=== PATIENT | female | born 1935 | race Caucasian/White ===

== ENCOUNTER 2018-09-03 10:37 | Inpatient (IN) | payer OTHER ==
[~2018-09-03] VITALS: Ht 157.5 cm; Wt 68.0 kg
[2018-09-03 10:39] VITALS: BP 133/81
[2018-09-03] MEDS ORDERED: ASPIR 8181 MG PO (11:23)
[2018-09-03] MEDS ORDERED: ADVAIR HFA 230M12 GM INH (11:23)
[2018-09-03] MEDS ORDERED: PREDNISONE 1 MG1 M1 PO (11:23)
[2018-09-03] MEDS ORDERED: METOPROLOL TART25 MG PO (11:24)
[2018-09-03] MEDS ORDERED: LISINOPRIL2.5 MG PO (11:24)
[2018-09-03] MEDS ORDERED: CRESTOR10 MG PO (11:24)
[2018-09-03] MEDS ORDERED: FISH OIL 1,001000 M2 PO (11:25)
[2018-09-03] MEDS ORDERED: AMARYL2 MG PO (11:25)
[2018-09-03 11:28] LABS: ABSOLUTE BASOPHILS 0.1 thou/uL (0.0-0.2); ABSOLUTE EOSINOPHILS 0.1 thou/uL (0.0-0.7); ABSOLUTE LYMPHOCYTES 2.5 thou/uL (0.8-5.3); ABSOLUTE MONOCYTES 0.7 thou/uL (0.0-1.2); ABSOLUTE NEUTROPHILS 5.3 thou/uL (1.6-8.1); BASOPHILS 1.1 %; EOSINOPHILS 0.7 %; HEMATOCRIT 44.5 % (37.0-47.0); LYMPHOCYTES 29.1 %; MCH 32.4 pg (26.0-34.0); MCHC 33.8 g/dL (28.0-37.0); MONOCYTES 8.2 %; MPV 10.4 fl. (7.2-11.1); NUCLEATED RBCS 0 /100WBC; PLATELET COUNT* 127 thou/uL (150-400); POLYS 60.9 %; RBC 4.64 mil/uL (4.20-5.00); RDW-CV 13.3 % (10.5-14.5); WBC 8.6 thou/uL (4.0-11.0)
[2018-09-03 11:36] LABS: ANION GAP 8 mmol/L (7-16); BUN 19 mg/dL (7-18); CALCIUM 9.4 mg/dL (8.5-10.1); CHLORIDE 101 mmol/L (98-107); CO2 28 mmol/L (21-32); GLUCOSE 174 mg/dL (70-99); POTASSIUM 3.5 mmol/L (3.5-5.1); SODIUM 137 mmol/L (136-145)
[2018-09-03 11:42] LABS: ALBUMIN 3.2 g/dL (3.4-5.0); ALKALINE PHOSPHATASE 72 U/L (46-116); SGOT 23 U/L (15-37); SGPT 19 U/L (30-65); TOTAL BILIRUBIN 1.1 mg/dL (<0.1-1.0); TOTAL PROTEIN 6.9 g/dL (6.4-8.2); TROPONIN-I LEVEL <0.06 ng/mL (<0.06)
[2018-09-03 13:36] LABS: URINE BLOOD 1+ (Negative); URINE CLARITY CLEAR; URINE COLOR YELLOW; URINE GLUCOSE-RANDOM NEGATIVE (Negative); URINE KETONES 2+ (Negative); URINE LEUKOCYTES 2+ (Negative); URINE NITRITE NEGATIVE (Negative); URINE PROTEIN 1+ (Negative); URINE SPECIFIC GRAVITY 1.025 (1.005-1.030)
[2018-09-03 13:40] LABS: URINE BILIRUBIN 1+ (Negative)
[2018-09-03 13:42] LABS: ICTOTEST (BILI CONFIRMATORY) Negative (Negative)
[2018-09-03 13:45] LABS: CASTS None Seen /LPF (None Seen); CRYSTALS None Seen /LPF (None Seen); SQUAMOUS 4-10 Moderate /LPF (0-3); URINE RBC 3-10 Few /HPF (0-2); URINE WBC >25 Many /HPF (0-5)
[2018-09-03 15:32] VITALS: BP 101/49
--- NOTE | 2018-09-03 15:32 | EKG ---
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 : 1935 Requested By: Teagan Blas Order Number: [id number] MD: Jose Antonio Shaikh Measurements Intervals [place] Rate: 98 P: 58 MI: 189 QRS: 1 QRSD: 100 T: 112 QT: 359 QTc: 459 Interpretive Statements Sinus rhythm Borderline low voltage, extremity leads Abnormal R-wave progression, late transition Abnormal inferior Q waves Abnormal T, consider ischemia, lateral leads No previous ECG available for comparison Electronically Signed On 09-03-2018 15:32:16 CDT by Jose Antonio Shaikh [email or web address] <ELECTRONICALLY SIGNED> By: Jose Antonio Shaikh MD, FACC 09/03/18 1532 1133 1133 Jose Antonio Shaikh MD, [facility] /EPI
[2018-09-03 16:14] VITALS: BP 101/49
[2018-09-03 21:00] VITALS: BP 150/65
[2018-09-04 08:00] VITALS: BP 115/56
[2018-09-04] MEDS ORDERED: CIPRO500 MG PO (12:09)
[2018-09-04] MEDS ORDERED: ULTRAM 50MG TAB50 MG PO (12:10)
[2018-09-04 12:11] VITALS: BP 115/56
[2018-09-04] MEDS ORDERED: TYLENOL EXTRA500 MG PO (12:16)
[2018-09-04 13:28] VITALS: BP 115/56
== END 2018-09-04 13:31 | disposition home or self-care (01) | DRG 543 ==
LOC: M.ERS 10:37 → M.ORTHSURG 13:48 → M.TBA-ER 13:48 → M.ORTHSURG 15:06
PROVIDERS: Nurse Practitioner Family; ADMIT Internal Medicine
DX: M80.08XA Age-related osteoporosis with current pathological fracture, vertebra(e), initial encounter for fracture (principal); N39.0 Urinary tract infection, site not specified; I10 Essential (primary) hypertension; I25.10 Atherosclerotic heart disease of native coronary artery without angina pectoris; J45.909 Unspecified asthma, uncomplicated; J44.9 Chronic obstructive pulmonary disease, unspecified; S09.90XA Unspecified injury of head, initial encounter; S39.012A Strain of muscle, fascia and tendon of lower back, initial encounter; M32.9 Systemic lupus erythematosus, unspecified; E11.40 Type 2 diabetes mellitus with diabetic neuropathy, unspecified; Z95.1 Presence of aortocoronary bypass graft; Z90.49 Acquired absence of other specified parts of digestive tract; Z90.710 Acquired absence of both cervix and uterus; Z88.0 Allergy status to penicillin; Z82.49 Family history of ischemic heart disease and other diseases of the circulatory system; Z79.82 Long term (current) use of aspirin; Z79.899 Other long term (current) drug therapy; Z28.21 Immunization not carried out because of patient refusal; W18.39XA Other fall on same level, initial encounter; Y93.89 Activity, other specified; Y92.89 Other specified places as the place of occurrence of the external cause; Y99.8 Other external cause status

== ENCOUNTER 2019-11-21 15:08 | Emergency (ER) | payer OTHER ==
[~2019-11-21] VITALS: Ht 157.5 cm; Wt 72.6 kg
[~2019-11-21 15:08] MED LIST: ADVAIR HFA 230M12 GM INH; AMARYL2 MG PO; ASPIR 8181 MG PO; CIPRO500 MG PO; CRESTOR10 MG PO; FISH OIL 1,001000 M2 PO; LISINOPRIL2.5 MG PO; METOPROLOL TART25 MG PO; PREDNISONE 1 MG1 M1 PO; TYLENOL EXTRA500 MG PO; ULTRAM 50MG TAB50 MG PO
[2019-11-21 17:34] VITALS: BP 204/68
== END 2019-11-21 17:35 | disposition home or self-care (01) ==
LOC: M.ERS 15:08
DX: S00.83XA Contusion of other part of head, initial encounter (principal); S00.31XA Abrasion of nose, initial encounter; S80.212A Abrasion, left knee, initial encounter; I10 Essential (primary) hypertension; E11.9 Type 2 diabetes mellitus without complications; J44.9 Chronic obstructive pulmonary disease, unspecified; Z90.49 Acquired absence of other specified parts of digestive tract; Z90.710 Acquired absence of both cervix and uterus; W01.0XXA Fall on same level from slipping, tripping and stumbling without subsequent striking against object, initial encounter; Y92.89 Other specified places as the place of occurrence of the external cause; Y93.89 Activity, other specified; Y99.8 Other external cause status

== ENCOUNTER → 2020-12-24 | Outpatient (CLI) | payer OTHER | LOC: M.CT 08:22 | PROVIDERS: ATTEND Nurse Practitioner Family | DX: K57.30 Diverticulosis of large intestine without perforation or abscess without bleeding (principal); K80.20 Calculus of gallbladder without cholecystitis without obstruction; M47.816 Spondylosis without myelopathy or radiculopathy, lumbar region ==

== ENCOUNTER 2020-12-30 17:19 | Inpatient (IN) | payer OTHER ==
[~2020-12-30] VITALS: Ht 160 cm; Wt 60.3 kg
[2020-12-30 16:05] LABS: ABSOLUTE BASOPHILS 0.1 thou/uL (0.0-0.2); ABSOLUTE EOSINOPHILS 0.1 thou/uL (0.0-0.7); ABSOLUTE LYMPHOCYTES 3.8 thou/uL (0.8-5.3); ABSOLUTE NEUTROPHILS 7.5 thou/uL (1.6-8.1); BASOPHILS 0.7 %; EOSINOPHILS 0.5 %; HEMATOCRIT 46.6 % (37.0-47.0); HEMOGLOBIN 15.7 gm/dL (12.0-15.0); LYMPHOCYTES 30.6 %; MCH 31.5 pg (26.0-34.0); MCHC 33.6 g/dL (28.0-37.0); MONOCYTES 8.1 %; MPV 11.5 fl. (7.2-11.1); NUCLEATED RBCS 0 /100WBC; PLATELET COUNT* 168 thou/uL (150-400); POLYS 60.1 %; RBC 4.96 mil/uL (4.20-5.00); RDW-CV 13.8 % (10.5-14.5); WBC 12.5 thou/uL (4.0-11.0)
[2020-12-30 16:12] LABS: CALCIUM 10.5 mg/dL (8.5-10.1); CREATININE 1.2 mg/dL (0.6-1.3); POTASSIUM 3.5 mmol/L (3.5-5.1)
[2020-12-30 17:33] VITALS: BP 142/62
[2020-12-30 17:46] LABS: URINE BLOOD NEGATIVE (Negative); URINE CLARITY CLEAR; URINE COLOR DARK YELLOW; URINE GLUCOSE-RANDOM NEGATIVE (Negative); URINE KETONES 1+ (Negative); URINE LEUKOCYTES-REFLEX TRACE (Negative); URINE NITRITE-REFLEX NEGATIVE (Negative); URINE PROTEIN 1+ (Negative); URINE SPECIFIC GRAVITY >= 1.030 (1.005-1.030)
[2020-12-30 17:52] LABS: URINE BILIRUBIN 2+ (Negative)
[2020-12-30 17:53] LABS: ICTOTEST (BILI CONFIRMATORY) Negative (Negative)
[2020-12-30 17:58] LABS: MUCUS >6 Heavy strn/LPF (None Seen); SQUAMOUS >10 Many /LPF (0-3)
[2020-12-30 17:59] LABS: BACTERIA-REFLEX 1-9 Few /HPF (None Seen); CRYSTALS None Seen /LPF (None Seen); HYALINE CASTS >10 Many /LPF (None Seen); URINE RBC 0-2 Rare /HPF (0-2)
[2020-12-30 20:59] VITALS: BP 135/68
[2020-12-30 21:47] VITALS: BP 168/67
[2020-12-31 00:54] VITALS: BP 157/70
[2020-12-31 04:26] LABS: MCH 31.9 pg (26.0-34.0); MCV 93.8 fL (80.0-100.0); MPV 12.1 fl. (7.2-11.1); RBC 4.27 mil/uL (4.20-5.00); RDW-CV 13.5 % (10.5-14.5); WBC 9.6 thou/uL (4.0-11.0)
[2020-12-31 04:31] LABS: CALCIUM 9.2 mg/dL (8.5-10.1); CREATININE 0.9 mg/dL (0.6-1.3)
[2020-12-31 05:06] LABS: HEMOGLOBIN 13.6 gm/dL (12.0-15.0)
[2020-12-31 08:30] VITALS: BP 142/61
[2020-12-31 09:46] LABS: INR 1.1; PROTIME 11.5 Seconds (9.20-11.50)
[2020-12-31 11:30] VITALS: BP 140/47
[2020-12-31 20:30] VITALS: BP 131/52
[2021-01-01] VITALS: BP 102/54
[2021-01-01 04:00] VITALS: BP 107/52
[2021-01-01 05:48] LABS: HEMOGLOBIN 12.3 gm/dL (12.0-15.0); MCH 31.7 pg (26.0-34.0); MCHC 33.2 g/dL (28.0-37.0); MCV 95.4 fL (80.0-100.0); MPV 11.9 fl. (7.2-11.1); RBC 3.87 mil/uL (4.20-5.00); RDW-CV 13.4 % (10.5-14.5); WBC 7.2 thou/uL (4.0-11.0)
[2021-01-01 05:58] LABS: CALCIUM 8.7 mg/dL (8.5-10.1); CREATININE 0.8 mg/dL (0.6-1.3)
[2021-01-01 06:00] LABS: POTASSIUM 2.8 mmol/L (3.5-5.1)
[2021-01-01 08:00] VITALS: BP 104/57
[2021-01-01] MEDS ORDERED: PLAVIX 75 MG TA75 MG PO (11:05)
[2021-01-01 12:27] VITALS: BP 104/59
[2021-01-01 12:56] VITALS: BP 104/59
== END 2021-01-01 13:40 | disposition home or self-care (01) | DRG 357 ==
LOC: M.TBA-ER 20:10 → M.2W 20:10
PROVIDERS: Internal Medicine Gastroenterology; Physician Assistant; Radiology Diagnostic Radiology; ADMIT Family Medicine; ATTEND Family Medicine
PROC: B4181ZZ Fluoroscopy of Bilateral Renal Arteries using Low Osmolar Contrast (ICD-10-PCS; principal; 2020-12-31)
PROC: B41D1ZZ Fluoroscopy of Aorta and Bilateral Lower Extremity Arteries using Low Osmolar Contrast (ICD-10-PCS; principal; 2020-12-31)
PROC: 04753DZ Dilation of Superior Mesenteric Artery with Intraluminal Device, Percutaneous Approach (ICD-10-PCS; principal; 2020-12-31)
PROC: B4151ZZ Fluoroscopy of Inferior Mesenteric Artery using Low Osmolar Contrast (ICD-10-PCS; principal; 2020-12-31)
DX: I77.4 Celiac artery compression syndrome (principal); K55.1 Chronic vascular disorders of intestine; I70.1 Atherosclerosis of renal artery; J44.9 Chronic obstructive pulmonary disease, unspecified; I25.10 Atherosclerotic heart disease of native coronary artery without angina pectoris; I10 Essential (primary) hypertension; E11.9 Type 2 diabetes mellitus without complications; Z96.641 Presence of right artificial hip joint; Z20.822 Contact with and (suspected) exposure to COVID-19; Z90.49 Acquired absence of other specified parts of digestive tract; Z90.710 Acquired absence of both cervix and uterus; Z79.84 Long term (current) use of oral hypoglycemic drugs; Z79.82 Long term (current) use of aspirin; Z79.899 Other long term (current) drug therapy; Z88.0 Allergy status to penicillin; Z95.1 Presence of aortocoronary bypass graft

== ENCOUNTER 2021-09-12 12:23 | Inpatient (IN) | payer OTHER ==
[~2021-09-12] VITALS: Ht 157.5 cm; Wt 72.1 kg
--- NOTE | ~2021-09-12 | OP ---
[address] [address] OPERATIVE REPORT Name: HERMELINDO SWANSON Room: [address] IN M.R.#: [id number] Admission: 09/12/21 Attend Phys: Pasquale Monsivais Discharge: Date of : 35 Report #: [id number] THIS REPORT FOR: cc: Kenna Neri Angela Jo RNP Kramer, Adam P. DO ~ cc: Farooq Nolasco MD, SHEFALI Farnsworth Muhammed K. Banday M DATE OF SURGERY: 09/16/2021 PREOPERATIVE DIAGNOSES: Symptomatic cholelithiasis and elevated liver function tests. POSTOPERATIVE DIAGNOSES: Symptomatic cholelithiasis and elevated liver function tests. PROCEDURE: Laparoscopic cholecystectomy with intraoperative cholangiogram. INSTRUMENT LENS GENERATOR: Dr. Jayden Vega DO, PGY-1, resident. SECOND HYDRAULIC RIVETER: Jaja Cervantes MS3. ANESTHESIA: General endotracheal with TAP blocks. ESTIMATED BLOOD LOSS: Less than 20 mL. COMPLICATIONS: None. DESCRIPTION OF PROCEDURE: After obtaining proper consents and discussing risks and complications with the patient she was taken to the operating room, laid in the supine position and administered general endotracheal anesthetic. She was then prepped and draped in the usual sterile fashion after TAP blocks were performed. We then made a small supraumbilical skin incision with a #11 scalpel blade. This was carried down through the skin and the subcutaneous tissue using electrocautery for hemostasis. Once the fascia was encountered, it was incised along the midline, grasped and elevated with Matilda clamps. The peritoneum was then bluntly opened using a hemostat, we were easily able to see into the peritoneal cavity at this point and we then placed 2-0 Vicryl sutures in a [id number] fashion to secure the Ty trocar, which was then inserted and insufflation was begun. Once insufflation was complete, full visual inspection of the anterior abdominal organs was performed. This revealed a small liver. The gallbladder was visualized and appeared to be somewhat thick walled and had some omental adhesions surrounding it. We then placed three more 5 mm ports, one in the subxiphoid position and 2 in the right upper quadrant. We were then able to grasp and elevate the gallbladder. The adhesions were taken down using electrocautery until we could visualize the [place] [address] OPERATIVE REPORT Name: HERMELINDO SWANSON Room: [address] IN R.#: [id number] Admission: 09/12/21 Attend Phys: Pasquale Monsivais Discharge: Date of : 35 Report #: [id number] was then grasped and elevated, this area was quite thin and actually tore Olive's pouch slightly and there was a little leak of bile from the gallbladder. At this point, we immediately got a suction development officer and cleaned that up. I then stripped down the hepatoduodenal ligament until I was able to visualize the cystic duct which coursed directly into the gallbladder. We then placed a clip at the gallbladder cystic duct junction and inserted a cholangiogram catheter through a 14-gauge Angiocath in the abdominal wall. We then performed cholangiography under fluoroscopy and the cystic duct was noticed to be patent. There did appear to be a small filling defect, which immediately pushed through and went out the distal end of the common bile duct. The common bile duct filled and there were no filling defects and contrast passed easily into the duodenum. We also were able to see the common hepatic duct and the hepatic radicles and there was no evidence of any filling defects or any concern. We then removed the cholangiogram catheter. Three clips were placed proximally on the cystic duct. We then dissected the cystic artery free, it was clipped proximally and distally and then divided between clips. We then removed the gallbladder from the liver bed. The gallbladder was then placed into an Endopouch. Once the gallbladder was an Endopouch we copiously irrigated the gallbladder fossa and assured hemostasis. As a precaution, I did place the Surgicel in the gallbladder fossa as a precaution. We then removed all the trocars under direct vision. The gallbladder was then removed through the umbilical incision. The insufflation was stopped. All air was released. The umbilical fascia was closed using the 2 previously placed 0 Vicryl sutures plus 2 additional 0 Vicryl sutures. Skin incisions were all closed using 4-0 Monocryl in subcuticular stitches. Mastisol, Steri-Strips, and 4-0 Monocryl was used to close the skin. We then used Dermabond, Mastisol to close the skin. The patient was awakened in the operating room and transported to recovery room in stable condition. By: [id number] [id number] Jonh Gilmore DO /cisco
--- NOTE | ~2021-09-12 | CON ---
[address] [address] CONSULTATION Name: HERMELINDO SWANSON Room: [address] IN M.R.#: [id number] Admission: 09/12/21 Attend Phys: Pasquale Monsivais Discharge: Date of : 35 Report #: [id number] THIS REPORT FOR: cc: Kenna Neri Angela Jo RNP Namin, Farid M. MD ~ cc: SHEFALI Farnsworth DATE OF CONSULTATION: 09/14/2021 Please note at the time of this dictation, the patient was seen and physically examined by myself. REASON FOR CONSULTATION: Epigastric pain and diarrhea. HISTORY OF PRESENT ILLNESS: This is an 86-year-old female presenting to the Emergency Room with worsening of this upper abdominal pain, which has been ongoing for the last couple of weeks. It significantly got worse the day of admission, prompting her to come to the Emergency Room. She states this epigastric pain is just generalized and kind of radiates into her chest. She has some nausea. She has a heartburn sensation. She breaks out in sweat and feels a little lightheaded. The patient states she has never had this happened to her before. The patient states it has been many years ago somewhere around in the city. She does not recall where she had an EGD and a colonoscopy done at that time. The patient has a longstanding history of diarrhea. She states that it has been ongoing for many years. She states that happens about 4 times a week that she has diarrhea and then she takes a bunch of Imodium and then she is constipated. Likely her constipation could be causing her diarrhea; however, she does not take anything at home for her bowel regimen. She may need a flexible sigmoidoscopy to rule out any microscopic colitis. It was also noted on admission that her liver function tests were slightly elevated as well. CT scan on admission showed layering gallstones, but no ductal dilatation. ALLERGIES: PENICILLIN. MEDICATIONS FROM HOME: Include fish oil, Crestor, Zestril, aspirin, Advair, Amaryl, metoprolol, prednisone and Plavix. PAST MEDICAL HISTORY: Asthma, COPD, diabetes, coronary artery disease, hypertension and lupus. PAST SURGICAL HISTORY: Appendectomy, hysterectomy, hip replacement on the right and coronary artery bypass surgery that was done in [place], [place]. FAMILY HISTORY: Negative for any GI [place] [address] CONSULTATION Name: HERMELINDO SWANSON Room: [address] IN [facility]#: [id number] Admission: 09/12/21 Attend Phys: Pasquale Monsivais Discharge: Date of : 35 Report #: [id number] SOCIAL HISTORY: She lives with her 88-year-old . Denies any alcohol, tobacco or illegal drug use, in which they live in their own home. REVIEW OF SYSTEMS: Twelve-point review of systems is essentially negative except what is mentioned in the HPI. PHYSICAL EXAMINATION: VITAL SIGNS: Temperature 36.8, pulse 83, respirations 15, blood pressure 127/47. HEART: Regular rate and rhythm. LUNGS: Diminished, but clear. ABDOMEN: Soft, positive bowel sounds in all 4 quadrants with ongoing epigastric to right upper quadrant tenderness noted to palpation. LABORATORY DATA: Hemoglobin is 11.5, white count is 14, platelets 81 and were 127 on admission. GFR is 39. Total bilirubin on admission was 1.7, she is now 2.9. Alkaline phosphatase was 141 on admission, she is now 207. ALT was 66, she is 483. AST was 114, she is now 323. Lipase was 319. CT scan shows layering gallstones, hiatal hernia and diverticulosis. C. diff is pending and acute hepatitis panel is pending. IMPRESSION: 1. Abdominal pain, right upper quadrant and epigastric. 2. Nausea and vomiting has improved. 3. Constipation. 4. Diarrhea. 5. Leukocytosis. 6. Thrombocytopenia. 7. Elevated liver function tests. 8. Cholelithiasis. 9. Anticoagulant therapy, Plavix. 10. Diabetes. 11. Chronic kidney disease 3. PLAN: 1. Ultrasound of the abdomen to further evaluate her liver and CPD. 2. Acute hepatitis panel is pending. 3. We will add senna b.i.d. to her bowel regimen. 4. The patient will likely need to have a Cardiology consult and surgical intervention. Depending on the above ultrasound, the patient may need a flexible sigmoidoscopy to rule out a microscopic colitis. 5. Further recommendations to be made after Dr. Nolasco sees the [place] [address] CONSULTATION Name: HERMELINDO SWANSON Room: [address] IN M.R.#: [id number] Admission: 09/12/21 Attend Phys: Pasquale Monsivais Discharge: Date of : 35 Report #: [id number] Thank you for allowing us to participate in this patient's care. Please do not hesitate to call with any questions regarding this consult. By: 0816 0906Farooq Nolasco MD /cisco
[~2021-09-12 12:23] MED LIST changes: +PLAVIX 75 MG TA75 MG PO
[2021-09-12 12:46] VITALS: BP 211/77
[2021-09-12 13:08] LABS: ABSOLUTE BASOPHILS 0.1 thou/uL (0.0-0.2); ABSOLUTE LYMPHOCYTES 1.5 thou/uL (0.8-5.3); ABSOLUTE MONOCYTES 0.6 thou/uL (0.0-1.2); ABSOLUTE NEUTROPHILS 10.5 thou/uL (1.6-8.1); BASOPHILS 0.6 %; EOSINOPHILS 0.3 %; HEMATOCRIT 42.7 % (37.0-47.0); HEMOGLOBIN 14.2 gm/dL (12.0-15.0); LYMPHOCYTES 11.7 %; MCH 32.3 pg (26.0-34.0); MCHC 33.3 g/dL (28.0-37.0); MONOCYTES 4.6 %; NUCLEATED RBCS 0 /100WBC; PLATELET COUNT* 127 thou/uL (150-400); POLYS 82.8 %; RDW-CV 13.8 % (10.5-14.5); WBC 12.6 thou/uL (4.0-11.0)
[2021-09-12 13:16] LABS: CREATININE 1.1 mg/dL (0.6-1.3); POTASSIUM 4.1 mmol/L (3.5-5.1)
[2021-09-12 13:31] LABS: ALBUMIN 3.5 g/dL (3.4-5.0); CK-MB MASS 2.7 ng/mL (<0.5-3.6); MAGNESIUM 2.3 mg/dL (1.8-2.4); TOTAL BILIRUBIN 1.7 mg/dL (<0.1-1.0); TOTAL PROTEIN 6.9 g/dL (6.4-8.2)
[2021-09-12 13:50] LABS: URINE BILIRUBIN NEGATIVE (Negative); URINE BLOOD NEGATIVE (Negative); URINE CLARITY CLEAR; URINE COLOR YELLOW; URINE GLUCOSE-RANDOM NEGATIVE (Negative); URINE KETONES NEGATIVE (Negative); URINE LEUKOCYTES-REFLEX TRACE (Negative); URINE NITRITE-REFLEX NEGATIVE (Negative); URINE PROTEIN NEGATIVE (Negative); URINE SPECIFIC GRAVITY >= 1.030 (1.005-1.030)
[2021-09-12 14:00] LABS: BACTERIA-REFLEX None Seen /HPF (None Seen); CASTS None Seen /LPF (None Seen); CRYSTALS None Seen /LPF (None Seen); MUCUS None Seen strn/LPF (None Seen); SQUAMOUS 0-3 Few /LPF (0-3); URINE RBC None Seen /HPF (0-2); URINE WBC-REFLEX 0-5 Rare /HPF (0-5)
[2021-09-12] MEDS ORDERED: ZOFRAN ODT4 MG PO (16:13)
[2021-09-12] MEDS ORDERED: CIPROFLOXACIN500 M1 PO (16:13)
--- NOTE | 2021-09-12 16:19 | EKG ---
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
[2021-09-12 20:02] VITALS: BP 104/59
[2021-09-12 20:21] VITALS: BP 94/57
--- NOTE | 2021-09-12 20:25 | NUR ---
ARRIVED PER CART FROM ER AT 2009. ADMISSION ASSESSMENT COMPLETED. CALL LIGHT WITHIN REACH. IV FLUIDS INFUSING.
--- NOTE | 2021-09-13 05:28 | NUR ---
RESTED QUIETLY. UP TO BEDSIDE COMMODE WITH ASSIST TO VOID. PAIN AND NAUSEA MEDICINE GIVEN. HOURLY ROUNDING IN PROGRESS.
[2021-09-13 07:34] VITALS: BP 105/34
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
--- NOTE | 2021-09-13 13:13 | NUR ---
Case and plan of care reviewed with physician each weekday during patient's length of stay. Continue plan of care per physician orders. New admit GI consulted and work up on progress. CM will continue follow for discharge planning needs.
[2021-09-13 15:54] VITALS: BP 104/47
[2021-09-13 16:08] VITALS: BP 107/51
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
[2021-09-13 21:20] VITALS: BP 127/47
[2021-09-14 05:08] LABS: HEMATOCRIT 34.4 % (37.0-47.0); MCH 32.5 pg (26.0-34.0); MCHC 33.5 g/dL (28.0-37.0); MCV 96.8 fL (80.0-100.0); MPV 11.5 fl. (7.2-11.1); RBC 3.55 mil/uL (4.20-5.00)
[2021-09-14 05:20] LABS: ALBUMIN 2.5 g/dL (3.4-5.0); CALCIUM 8.5 mg/dL (8.5-10.1); CREATININE 1.3 mg/dL (0.6-1.3); MAGNESIUM 2.2 mg/dL (1.8-2.4); POTASSIUM 3.8 mmol/L (3.5-5.1); TOTAL BILIRUBIN 2.9 mg/dL (<0.1-1.0); TOTAL PROTEIN 5.4 g/dL (6.4-8.2)
[2021-09-14 05:21] LABS: HEMOGLOBIN 11.5 gm/dL (12.0-15.0)
[2021-09-14 08:00] VITALS: BP 155/56
[2021-09-14 13:03] LABS: HEMOGLOBIN 11.4 gm/dL (12.0-15.0); MCH 32.7 pg (26.0-34.0); MCHC 33.6 g/dL (28.0-37.0); MCV 97.3 fL (80.0-100.0); MPV 10.9 fl. (7.2-11.1); NUCLEATED RBCS 0 /100WBC; PLATELET COUNT* 73 thou/uL (150-400); RBC 3.49 mil/uL (4.20-5.00); RDW-CV 14.1 % (10.5-14.5); WBC 8.7 thou/uL (4.0-11.0)
[2021-09-14 13:34] LABS: ABSOLUTE LYMPHOCYTES 0.8 thou/uL (0.8-5.3); ABSOLUTE MONOCYTES 0.3 thou/uL (0.0-1.2); ABSOLUTE NEUTROPHILS 7.7 thou/uL (1.6-8.1); PLATELET ESTIMATE DECREASED
[2021-09-14 13:35] LABS: LARGE PLATELETS RARE
--- NOTE | 2021-09-14 15:27 | NUR ---
Case and plan of care reviewed with physician each weekday during patient's length of stay. Continue plan of care per physician orders. CONTINUE IV CIPRO AND FLAGYL, PENDING GI CONSULT. CM will continue to follow for discharge planning.
[2021-09-14 17:30] VITALS: BP 168/68
--- NOTE | 2021-09-14 17:54 | 2DMMODE ---
[place] [address] 2 D/M-MODE ECHOCARDIOGRAM Name: HERMELINDO SWANSON Room: [address] ADM IN M.R.#: [id number] Admission: 09/12/21 Attend Phys: Jabari Cervantes Discharge: Date of : 35 Date of Service: 09/14/21 1754 Report #: [id number] THIS REPORT FOR: cc: Kenna Neri Angela Jo RNP Liston, Michael J. MD [facility] ~ APPROVED REPORT Study performed: 09/14/2021 15:18:51 EXAM: Comprehensive 2D, Doppler, and color-flow Echocardiogram Patient Location: Bedside BSA: 1.73 HR: 79 bpm BP: 155/56 mmHg Other Information Study Quality: Adequate Indications CAD 2D Dimensions IVSd: 13.60 (7-11mm) LVOT Diam: 16.33 (18-24mm) LVDd: 42.95 mm PWd: 10.90 (7-11mm) Ascending Ao: 28.31 (22-36mm) LVDs: 30.15 (25-40mm) Aortic Root: 17.63 mm Volumes Left Atrial Volume (Systole) LA ESV Index: 25.80 mL/m2 Aortic Valve AoV Peak Vasyl.: 0.93 m/s AO Peak Gr.: 3.45 mmHg LVOT Max P.73 mmHg AO Mean Gr.: 2.18 mmHg LVOT Mean P.11 mmHg LVOT Max V: 0.97 m/s AO V2 VTI: 21.52 cm LVOT Mean V: 0.68 m/s PARESH (VTI): 2.36 cm2 LVOT V1 VTI: 24.27 cm Mitral Valve E/A Ratio: 1.08 [place] [address] 2 D/M-MODE ECHOCARDIOGRAM Name: HERMELINDO SWANSON Room: [address] IN .R.#: [id number] Admission: 09/12/21 Attend Phys: Jabari Cervantes Discharge: Date of : 35 Date of Service: 09/14/21 1754 Report #: [id number] MV Decel. Time: 198.91 ms MV E Max Vasyl.: 1.20 m/s MV PHT: 57.68 ms MVA (PHT): 3.81 cm2 TDI E/Lateral E': 17.14 E/Medial E': 20.00 Medial E' Vasyl.: 0.06 m/s Lateral E' Vasyl.: 0.07 m/s Pulmonary Valve PV Peak Vasyl.: 0.88 m/s PV Peak Gr.: 3.13 mmHg Tricuspid Valve RAP Estimate: 5.00 mmHg TR Peak Gr.: 25.85 mmHg RVSP: 30.85 mmHg PA Pressure: 30.85 mmHg Left Ventricle The left ventricle is normal size. There is normal LV segmental wall motion. Mild to moderate concentric left ventricular hypertrophy. Left ventricular systolic function is normal. LVEF is 55-60%. Transmitral Doppler flow pattern suggests restrictive physiology. Right Ventricle The right ventricle is normal size. The right ventricular systolic function is normal. Atria The left atrium size is normal. The right atrium size is normal. Aortic Valve The aortic valve is normal in structure. No aortic regurgitation is present. There is no aortic valvular stenosis. Mitral Valve There is mitral annular calcification. Mild mitral regurgitation. No evidence of mitral valve stenosis. Tricuspid Valve The tricuspid valve is normal in structure. Trace tricuspid regurgitation[place] [address] 2 D/M-MODE ECHOCARDIOGRAM Name: HERMELINDO SWANSON Room: [address] IN [facility]#: [id number] Admission: 09/12/21 Attend Phys: Jabari Cervantes Discharge: Date of : 35 Date of Service: 09/14/21 1754 Report #: [id number] The pulmonary valve is normal in structure. Trace pulmonic regurgitation. Great Vessels The aortic root is normal in size. IVC is normal in size and collapses >50% with inspiration. Pericardium There is no pericardial effusion. <Conclusion> The left ventricle is normal size. Mild to moderate concentric left ventricular hypertrophy. Left ventricular systolic function is normal. LVEF is 55-60%. Transmitral Doppler flow pattern suggests restrictive physiology. There is normal LV segmental wall motion. Mild mitral regurgitation. Trace tricuspid regurgitation. IVC is normal in size and collapses >50% with inspiration. <ELECTRONICALLY SIGNED> By: Anson Haro MD, FACC 09/14/211753 53 53 Anson Haro MD, FACC /INF
--- NOTE | 2021-09-14 19:00 | NUR ---
Assumed care of pt. around 929 from Nadine CONTRERAS. Pt. aox4, vss, call light and personal belongings placed within reach. ivf infusing without complications. pt. denies pain or discomfort or n/v. pt. in bed, resting with eyes open, in stable condition, at shift change.
[2021-09-14 21:29] VITALS: BP 160/67
[2021-09-15 04:13] LABS: ABSOLUTE LYMPHOCYTES 0.7 thou/uL (0.8-5.3); ABSOLUTE MONOCYTES 0.3 thou/uL (0.0-1.2); ABSOLUTE NEUTROPHILS 5.7 thou/uL (1.6-8.1); BASOPHILS 0.1 %; EOSINOPHILS 0.2 %; HEMATOCRIT 31.8 % (37.0-47.0); HEMOGLOBIN 10.7 gm/dL (12.0-15.0); LYMPHOCYTES 9.8 %; MCHC 33.7 g/dL (28.0-37.0); MCV 97.9 fL (80.0-100.0); MONOCYTES 4.4 %; MPV 11.1 fl. (7.2-11.1); NUCLEATED RBCS 0 /100WBC; PLATELET COUNT* 66 thou/uL (150-400); POLYS 85.5 %; RBC 3.25 mil/uL (4.20-5.00); RDW-CV 14.1 % (10.5-14.5); WBC 6.7 thou/uL (4.0-11.0)
[2021-09-15 04:29] LABS: ALBUMIN 2.2 g/dL (3.4-5.0); CALCIUM 8.5 mg/dL (8.5-10.1); CREATININE 1.1 mg/dL (0.6-1.3); PHOSPHORUS* 2.4 mg/dL (2.5-4.9); POTASSIUM 4.2 mmol/L (3.5-5.1); TOTAL BILIRUBIN 0.9 mg/dL (<0.1-1.0); TOTAL PROTEIN 5.3 g/dL (6.4-8.2)
--- NOTE | 2021-09-15 05:35 | NUR ---
PT A&OX4, VSS ON ROOM AIR, IV FLUIDS INFUSING ORDERED, UP WITH ASSIST TO BSC. PT IN ISOLATION FOR POSSIBLE D.DIFF; PT HAD SMALL FORMED BOWEL MOVEMENT THIS SHIFT. PT SLEEPING WELL, WILL CONTINUE TO MONITOR.
[2021-09-15 08:00] VITALS: BP 198/84
--- NOTE | 2021-09-15 14:54 | NUR ---
Case and plan of care reviewed with physician each weekday during patient's length of stay. Continue plan of care per physician orders. PLAN IS TO DO LAP RADHA ON 09/16/21. CM WILL FOLLOW WITH DISCHARGE PLANNING. NO NEEDS ANTICIPATED AT THIS TIME.
[2021-09-15 16:04] VITALS: BP 161/48
--- NOTE | 2021-09-15 18:12 | NUR ---
PT SLOWLY PROGRESSING TOWARDS DC GOALS. PT WILL HAVE GALL BLADDER SURGERY IN THE AM AT 0700. PT BLOOD SUGAR WAS LOW THIS AM JUICE GIVEN THEN UP TO 85, THEN AT LUNCH BLOOD SUGAR WAS 65 JUSICE WAS GIVEN AND AT SUPPER BLOOD SUGAR WAS 152. VSS AFEBRILE. WILL CONTINUE TO MONITOR PLAN OF CARE. PT UP WITH SBA TO BSC.
[2021-09-15 21:40] VITALS: BP 164/62
[2021-09-16 03:06] LABS: HEPATITIS B SURFACE AG Negative (Negative)
[2021-09-16 04:00] VITALS: BP 175/54
--- NOTE | 2021-09-16 05:48 | NUR ---
PT A&OX4, VSS ON ROOM AIR, IV FLUIDS INFUSING ORDERED, UP WITH ASSIT TO BSC. NO CO PAIN OR DISCOMFORT THIS SHIFT. NPO SINCE MIDNIGHT. PT SLEEPING WELL.
[2021-09-16 10:30] VITALS: BP 177/68
--- NOTE | 2021-09-16 10:38 | NUR ---
1010: PATIENT RETURN TO FLOOR/ROOM VIA BED FROM POST-OP ACCOMPANIED BY PACU NURSE AND . PATIENT RESTING IN BED. FOUR INCISIONS TO ABDOMEN WIHT DERMABOND, INTACT. SCD'S TO LOWER EXTREMITIES INFLATING WITHOUT DIFFICULTIES. IV TO LEFT HAND WITH NORMAL SALINE INFUSING AT 100MLS/HOUR WITHOUT DIFFICULTIES. VITAL SIGNS WNL. WILL CONTINUE TO MONITOR.
[2021-09-16 12:30] LABS: ABSOLUTE EOSINOPHILS 0.1 thou/uL (0.0-0.7); ABSOLUTE LYMPHOCYTES 0.7 thou/uL (0.8-5.3); ABSOLUTE MONOCYTES 0.5 thou/uL (0.0-1.2); ABSOLUTE NEUTROPHILS 6.2 thou/uL (1.6-8.1); BASOPHILS 0.4 %; EOSINOPHILS 1.8 %; HEMATOCRIT 35.7 % (37.0-47.0); HEMOGLOBIN 11.9 gm/dL (12.0-15.0); LYMPHOCYTES 9.1 %; MCHC 33.4 g/dL (28.0-37.0); MCV 99.1 fL (80.0-100.0); MONOCYTES 7.1 %; MPV 11.8 fl. (7.2-11.1); NUCLEATED RBCS 0 /100WBC; PLATELET COUNT* 82 thou/uL (150-400); POLYS 81.6 %; RBC 3.61 mil/uL (4.20-5.00); RDW-CV 14.3 % (10.5-14.5); WBC 7.6 thou/uL (4.0-11.0)
[2021-09-16 13:01] LABS: ALBUMIN 2.4 g/dL (3.4-5.0); APTT 23.7 Seconds (25.0-31.3); CALCIUM 8.5 mg/dL (8.5-10.1); CREATININE 1.1 mg/dL (0.6-1.3); POTASSIUM 3.7 mmol/L (3.5-5.1); PROTIME 11.1 Seconds (9.20-11.50); TOTAL PROTEIN 5.7 g/dL (6.4-8.2)
--- NOTE | 2021-09-16 14:48 | NUR ---
Case and plan of care reviewed with physician each weekday during patient's length of stay. Continue plan of care per physician orders. Pt scheduled for Lap Ana 07:[address] questioned if need for HH. Attempted to call [facility] [phone] No answer. Spoke to pt at this time. She thought HH was a good idea too. No hx or preference, choices given, [facility] chosen. Notified [facility] and faxed referral to [facility] [phone] Discharge anticipated for 09/17/21
[2021-09-16 14:56] VITALS: BP 177/68
[2021-09-16 16:04] VITALS: BP 185/74
--- NOTE | 2021-09-16 17:18 | NUR ---
PATIENT RESTING IN BED. BLOOD SUGARS MONITORED. INSULIN GIVEN NEEDED. FOUR INCISIONS TO ABDOMEN WITH DERMABOND, INTACT. IV TO LEFT HAND WITH NORMAL SALINE INFUSING AT 80MLS/HR. BED IN LOW/LOCKED POSITION. BED ALARM ON. CALL LIGHT WITHIN REACH. ALL QUESTIONS AND COCNERNS ADDRESSED.
[2021-09-16 20:00] VITALS: BP 167/66
[2021-09-17 04:00] VITALS: BP 135/56
--- NOTE | 2021-09-17 05:16 | NUR ---
ASSUMED PT CARE AT 1930. PT REQUESTING PAIN MEDICATION FOR ABDOMINAL PAIN. PIV TO LEFT HAND INFUSING NS @ 80 CC HR. PT UP TO BSC TO VOID. EXTREMELY UNSTEADY, BACK TO BED WITH ASSIST OF GAITBELT AND TWO. ABDOMINAL INCISIONS WITH DERMABOND INTACT. IV ABX INFUSED PER ORDERS. CALL LIGHT IN REACH, BED ALARM ON FOR SAFETY. HOURLY ROUNDING IN PROGRESS, WILL CONTINUE TO MONITOR.
[2021-09-17 06:04] LABS: ALBUMIN 2.2 g/dL (3.4-5.0); CALCIUM 8.2 mg/dL (8.5-10.1); CREATININE 0.8 mg/dL (0.6-1.3); POTASSIUM 3.4 mmol/L (3.5-5.1); TOTAL PROTEIN 5.3 g/dL (6.4-8.2)
[2021-09-17 07:10] LABS: ABSOLUTE LYMPHOCYTES 1.4 thou/uL (0.8-5.3); ABSOLUTE MONOCYTES 0.8 thou/uL (0.0-1.2); ABSOLUTE NEUTROPHILS 5.7 thou/uL (1.6-8.1); BASOPHILS 0.2 %; EOSINOPHILS 0.5 %; HEMATOCRIT 33.3 % (37.0-47.0); HEMOGLOBIN 11.1 gm/dL (12.0-15.0); LYMPHOCYTES 17.6 %; MCH 32.4 pg (26.0-34.0); MCHC 33.4 g/dL (28.0-37.0); MCV 97.2 fL (80.0-100.0); MONOCYTES 9.9 %; MPV 11.3 fl. (7.2-11.1); NUCLEATED RBCS 0 /100WBC; PLATELET COUNT* 72 thou/uL (150-400); POLYS 71.8 %; RBC 3.43 mil/uL (4.20-5.00); RDW-CV 14.3 % (10.5-14.5); WBC 7.9 thou/uL (4.0-11.0)
[2021-09-17 08:00] VITALS: BP 165/67
[2021-09-17 12:12] VITALS: BP 156/66
[2021-09-17 17:29] VITALS: BP 144/64
[2021-09-17 20:27] VITALS: BP 155/65
[2021-09-18] VITALS: BP 150/60
[2021-09-18 04:11] VITALS: BP 161/59
--- NOTE | 2021-09-18 04:31 | NUR ---
PT DID NOT REPORT ANY PAIN OR DISCOMFORT. SAYS SHE FELT FINE. WAS IN CHAIR AT BEGINNING OF SHIFT, AFTER GOING TO BED SHE DID NOT CALL OUT ALL EVENING. SHE IS UP STANDBY ASSIST TO BSC.
[2021-09-18 06:13] LABS: ABSOLUTE LYMPHOCYTES 1.1 thou/uL (0.8-5.3); ABSOLUTE MONOCYTES 0.5 thou/uL (0.0-1.2); ABSOLUTE NEUTROPHILS 5.1 thou/uL (1.6-8.1); ALBUMIN 2.2 g/dL (3.4-5.0); BASOPHILS 0.1 %; CALCIUM 8.8 mg/dL (8.5-10.1); CREATININE 0.8 mg/dL (0.6-1.3); EOSINOPHILS 0.4 %; HEMATOCRIT 34.5 % (37.0-47.0); HEMOGLOBIN 11.5 gm/dL (12.0-15.0); LYMPHOCYTES 16.5 %; MAGNESIUM 2.2 mg/dL (1.8-2.4); MCH 32.5 pg (26.0-34.0); MCHC 33.4 g/dL (28.0-37.0); MCV 97.2 fL (80.0-100.0); MONOCYTES 7.8 %; MPV 11.1 fl. (7.2-11.1); NUCLEATED RBCS 0 /100WBC; PHOSPHORUS* 2.5 mg/dL (2.5-4.9); PLATELET COUNT* 81 thou/uL (150-400); POLYS 75.2 %; POTASSIUM 3.7 mmol/L (3.5-5.1); RBC 3.55 mil/uL (4.20-5.00); RDW-CV 14.4 % (10.5-14.5); TOTAL BILIRUBIN 0.7 mg/dL (<0.1-1.0); TOTAL PROTEIN 5.8 g/dL (6.4-8.2); WBC 6.9 thou/uL (4.0-11.0)
[2021-09-18 08:30] VITALS: BP 177/68; BP 177/74
[2021-09-18 12:28] VITALS: BP 177/68
--- NOTE | 2021-09-18 12:34 | NUR ---
PATIENT DISCHARGED HOME AT THIS TIME VIA WHEELCHAIR ACCOMPANIED BY STAFF TO PRIVATE VEHICLE. DISCHARGE INSTRUCTIONS REVIEWED, PATIENT ACKNOWLEDGED UNDERSTANDING. INCISIONS TO ABDOMEN WITH DERMABOND INTACT. ALL QUESTIONS AND CONCERNS ADDRESSED.
--- NOTE | 2021-09-19 10:22 | EKG ---
[place] [address] ELECTROCARDIOGRAM REPORT Name: HERMELINDO SWANSON Room: [address] DIS IN M.R.#: [id number] Admission: 09/12/21 Attend Phys: Jabari Cervantes Discharge: 09/18/21 Date of : 35 Date of Service: 09/15/21 0847 Report #: [id number] THIS REPORT FOR: //name// [facility] Test Date: 2021-09-15 Test Time: 08:47:54 Pat Name: HERMELINDO SWANSON Department: Room: [address] Gender: F Route Jumper: SB : 1935 Requested By: Rach Bernstein Order Number: [id number] Reading MD: Juan Gamboa Measurements Intervals [place] Rate: 65 P: 31 OR: 210 QRS: 18 QRSD: 92 T: 35 QT: 433 QTc: 451 Interpretive Statements Sinus rhythm Compared to ECG 09/12/2021 13:01:09 no change Electronically Signed On 09-19-2021 10:22:47 CDT by Juan Gamboa [email or web address] <ELECTRONICALLY SIGNED> By: Juan Gamboa MD, [facility] 09/19/21 1022 0847 0847 Juan Gamboa MD, [facility] /EPI
--- NOTE | 2021-09-20 12:07 | PATH ---
[facility] [address] [place] [address] PATHOLOGY RPT PROCEDURE Name: HERMELINDO SWANSON Room: [address] IN M.R.#: [id number] Admission: 09/12/21 Date of : 35 Discharge: 09/18/21 Report #: [id number] Path Case #: [id number] [facility] Accession Number: [id number] . 01 Material submitted: . gallbladder - GALLBLADDER AND CONTENTS . 01 Clinical history: . LAPAROSCOPIC CHOLECYSTECTOMY WITH GRAMS ACUTE CHOLECYSTITIS . 02 Diagnosis: Gallbladder and contents: - Acute and chronic cholecystitis and cholelithiasis. (HAY:[facility]; 09/19/2021) QT 09/19/2021 [facility] Local . 02 Electronically signed: . Mckay Lujan MD, Pathologist NPI- [id number] . 01 Gross description: . Fixative: Formalin Labeled: Gallbladder Specimen received: Previously opened gallbladder Dimensions: 7.0 x 3.0 x 1.3 cm Serosa: Purple-rodrigues and wrinkled with a mild amount of adipose tissue Lymph node: Not identified Mucosa: Velvety, bile-stained Average wall thickness: Up to 0.5 Calculi: Present displaying a black, nodular appearance Abnormalities: None identified . A1- Field Logistics Coordinator body, fundus, and the cystic duct margin. ([facility]; 09/16/2021) NRI/NRI 09/16/2021 [facility] Local . 02 Pathologist provided ICD-10: K80.12 . 02 CPT . 715429 Specimen Comment: A courtesy copy of this report has been sent to [phone] Specimen Comment: [phone], Specimen Comment: Report sent to , DR MACARIO / DR CANNON Specimen Comment: A duplicate report has been generated [place] [address] PATHOLOGY RPT PROCEDURE Name: HERMELINDO SWANSON Room: [address]#: [id number] Admission: 09/12/21 Date of : 35 Discharge: 09/18/21 Report #: [id number] Path Case #: [id number] Performed at: 01 [facility] [place] [address], [place], [place] [address] MD Roberto Sol MD Phone: [phone] Performed at: 02 [facility] [address], [place], [place] [id number] MD Mckay Lujan MD Phone: [phone]
== END 2021-09-18 12:37 | disposition home health service (06) | DRG 854 ==
LOC: M.ERS 12:23 → M.3W 16:38 → M.TBA-ER 16:38 → M.3W 20:11
PROVIDERS: Family Medicine; Internal Medicine; Student in an Organized Health Care Education/Training Program; Surgery; ADMIT Internal Medicine; ATTEND Internal Medicine
PROC: 0FT44ZZ Resection of Gallbladder, Percutaneous Endoscopic Approach (ICD-10-PCS; principal; 2021-09-16)
PROC: BF121ZZ Fluoroscopy of Gallbladder using Low Osmolar Contrast (ICD-10-PCS; principal; 2021-09-16)
DX: A41.9 Sepsis, unspecified organism (principal); A04.9 Bacterial intestinal infection, unspecified; E44.0 Moderate protein-calorie malnutrition; K55.1 Chronic vascular disorders of intestine; Z20.822 Contact with and (suspected) exposure to COVID-19; J45.909 Unspecified asthma, uncomplicated; J44.9 Chronic obstructive pulmonary disease, unspecified; I25.10 Atherosclerotic heart disease of native coronary artery without angina pectoris; Z96.641 Presence of right artificial hip joint; K59.00 Constipation, unspecified; D69.6 Thrombocytopenia, unspecified; N18.30 Chronic kidney disease, stage 3 unspecified; E11.22 Type 2 diabetes mellitus with diabetic chronic kidney disease; K80.20 Calculus of gallbladder without cholecystitis without obstruction; I12.9 Hypertensive chronic kidney disease with stage 1 through stage 4 chronic kidney disease, or unspecified chronic kidney disease; K57.90 Diverticulosis of intestine, part unspecified, without perforation or abscess without bleeding; R74.01 Elevation of levels of liver transaminase levels; E80.6 Other disorders of bilirubin metabolism; Z90.49 Acquired absence of other specified parts of digestive tract; Z90.710 Acquired absence of both cervix and uterus; Z88.0 Allergy status to penicillin; Z79.01 Long term (current) use of anticoagulants; Z95.1 Presence of aortocoronary bypass graft; Z28.21 Immunization not carried out because of patient refusal; Z68.29 Body mass index [BMI] 29.0-29.9, adult